=== PATIENT | female | born 1955 | race Caucasian/White ===

== ENCOUNTER 2017-11-06 11:04 | Emergency (ER) | payer MEDICARE, OTHER ==
[2017-11-06] MEDS: METOCLOPRAMIDE 10 MG INJ IV (12:55)
[2017-11-06] MEDS: KETOROLAC 30 MG INJ IV (12:56)
[2017-11-06] MEDS: SOD CHLORIDE 0.9% 1,000 ML IV (12:56)
[2017-11-06] MEDS: DIPHENHYDRAMINE 50 MG INJ IV (12:56)
[2017-11-06 13:29] LABS: URINE BLOOD (Dip) POC Negative (NEGATIVE); URINE GLUCOSE (Dip) POC Negative (NEGATIVE); URINE KETONES (Dip) POC Negative (NEGATIVE); URINE LEUKOCYTE EST (Dip) POC Trace (NEGATIVE); URINE NITRITE (Dip) POC Negative (NEGATIVE); URINE TOTAL PROTEIN POC Negative (NEGATIVE)
[2017-11-06 13:29] LABS: URINE PH (Dip) POC 7.5 (5.0-8.5)
== END 2017-11-06 15:33 | disposition home or self-care (01) ==
LOC: FTE 11:04
DX: R51 Headache (principal); Z79.82 Long term (current) use of aspirin
CPT/HCPCS: 70450; 81003; 96374; 96375; 99285-25

== ENCOUNTER 2017-11-17 14:29 | Emergency (ER) | payer MEDICARE, OTHER ==
[2017-11-17] MEDS: KETOROLAC 30 MG INJ IM ×2 (16:32→17:20)
[2017-11-17] MEDS: SOD CHLORIDE 0.9% 1,000 ML IV (17:14)
[2017-11-17 17:36] LABS: ADD MAN DIFF? NO
[2017-11-17 17:39] LABS: BASOPHILS % 0.3 % (0.0-2.0); EOSINOPHILS # 0.6 10^3/ul (0.0-0.5); EOSINOPHILS % 8.8 % (0.0-7.0); HEMATOCRIT 33.8 % (37.0-47.0); HEMOGLOBIN 10.5 g/dl (12.0-16.0); LYMPHOCYTES # 2.9 10^3/ul (0.8-2.9); LYMPHOCYTES % 40.1 % (15.0-51.0); MEAN CORPUSCULAR HEMOGLOBIN 26.6 pg (29.0-33.0); MEAN CORPUSCULAR HGB CONC 31.1 g/dl (32.0-37.0); MEAN CORPUSCULAR VOLUME 85.6 fl (82.0-101.0); MEAN PLATELET VOLUME 11.5 fl (7.4-10.4); MONOCYTE # 0.6 10^3/ul (0.3-0.9); MONOCYTES % 8.7 % (0.0-11.0); NEUTROPHIL # 3.1 10^3/ul (1.6-7.5); PLATELET COUNT 264 10^3/UL (140-415); RED BLOOD COUNT 3.95 10^6/ul (4.20-5.40); RED CELL DISTRIBUTION WIDTH 14.7 % (11.5-14.5)
[2017-11-17 17:39] LABS: WHITE BLOOD COUNT 7.3 10^3/ul (4.8-10.8)
[2017-11-17] MEDS: KETOROLAC 30 MG INJ IV (17:43)
[2017-11-17 17:47] LABS: ADD UMIC YES; UR ASCORBIC ACID NEGATIVE (NEGATIVE); UR BILIRUBIN (Dip) NEGATIVE (NEGATIVE); UR BLOOD (Dip) NEGATIVE (NEGATIVE); UR CLARITY CLEAR (CLEAR); UR COLOR YELLOW (YELLOW); UR GLUCOSE (Dip) NEGATIVE (NEGATIVE); UR KETONES (Dip) NEGATIVE (NEGATIVE); UR LEUKOCYTE ESTERASE (Dip) 2+ Leu/ul (NEGATIVE); UR MUCUS FEW /HPF (NONE SEEN); UR NITRITE (Dip) NEGATIVE (NEGATIVE); UR RBC 0 /HPF (0-5); UR SPECIFIC GRAVITY (Dip) 1.012 (1.003-1.030); UR SQUAMOUS EPITHELIAL CELL FEW /HPF (FEW); UR TOTAL PROTEIN (Dip) NEGATIVE (NEGATIVE); UR UROBILINOGEN (Dip) NEGATIVE (NEGATIVE); UR WBC 3 /HPF (0-5)
[2017-11-17 17:58] LABS: ANION GAP 19 (8-16); BLOOD UREA NITROGEN 11 mg/dl (7-20); CALCIUM 8.6 mg/dl (8.4-10.2); CARBON DIOXIDE 25 mmol/L (21-31); CHLORIDE 107 mmol/L (97-110); CREATININE 0.61 mg/dl (0.44-1.00); GLUCOSE 80 mg/dl (70-220); POTASSIUM 3.8 mmol/L (3.5-5.1); SODIUM 147 mmol/L (135-144)
[2017-11-17] MEDS: CEFTRIAXONE 1 GM/50 ML (PMX) 50 ML IVPB (18:25)
== END 2017-11-17 19:55 | disposition home or self-care (01) ==
LOC: FTE 14:29
DX: H66.92 Otitis media, unspecified, left ear (principal); Z79.82 Long term (current) use of aspirin
CPT/HCPCS: 36415; 80048; 81001; 85025; 96374; 96375; 99284-25

== ENCOUNTER 2019-02-08 17:48 | Emergency (ER) | payer MEDICARE, OTHER ==
[2019-02-08] MEDS: HYDROCODONE/APAP (5/325) TAB PO (18:33)
[2019-02-08] MEDS: KETOROLAC 30 MG INJ IM (18:34)
== END 2019-02-08 21:17 | disposition home or self-care (01) ==
LOC: FTE 17:48
DX: S92.351A Displaced fracture of fifth metatarsal bone, right foot, initial encounter for closed fracture (principal); X50.1XXA Overexertion from prolonged static or awkward postures, initial encounter; Y92.9 Unspecified place or not applicable; Z96.643 Presence of artificial hip joint, bilateral
CPT/HCPCS: 73610; 73610-RT; 73630; 96372; 99284-25

== ENCOUNTER 2019-04-03 18:54 | Inpatient (IN) | payer MEDICARE, OTHER ==
[2019-04-03] MEDS: BELLADONNA/PHENOBARBITAL TAB PO (21:53)
[2019-04-03] MEDS: SOD CHLORIDE 0.9% 1,000 ML IV (21:53)
[2019-04-03] MEDS: ONDANSETRON 4 MG INJ IV (21:53)
[2019-04-03] MEDS: LIDOCAINE/MYLANTA 40 ML BTL PO (21:53)
[2019-04-03] MEDS: KETOROLAC 15 MG INJ IV (21:53)
[2019-04-03 21:54] LABS: ADD MAN DIFF? NO
[2019-04-03] MEDS: ACETAMINOPHEN 325 MG TAB PO (21:54)
[2019-04-03 21:55] LABS: ABNORMAL IP MESSAGE 1; BASOPHILS % 0.2 % (0.0-2.0); EOSINOPHILS # 0.1 10^3/ul (0.0-0.5); EOSINOPHILS % 1.5 % (0.0-7.0); HEMATOCRIT 28.5 % (37.0-47.0); LYMPHOCYTES % 11.6 % (15.0-51.0); MEAN CORPUSCULAR HEMOGLOBIN 19.5 pg (29.0-33.0); MEAN CORPUSCULAR HGB CONC 28.1 g/dl (32.0-37.0); MEAN CORPUSCULAR VOLUME 69.5 fl (82.0-101.0); MONOCYTE # 0.6 10^3/ul (0.3-0.9); MONOCYTES % 6.8 % (0.0-11.0); NEUTROPHIL # 6.7 10^3/ul (1.6-7.5); NEUTROPHILS % 79.3 % (39.0-77.0); PLATELET COUNT 342 10^3/UL (140-415); RED CELL DISTRIBUTION WIDTH 18.7 % (11.5-14.5)
[2019-04-03 21:55] LABS: WHITE BLOOD COUNT 8.4 10^3/ul (4.8-10.8)
[2019-04-03 21:58] LABS: POSITIVE DIFF @See below
[2019-04-03 21:59] LABS: ADD UMIC YES; UR ASCORBIC ACID NEGATIVE (NEGATIVE); UR BILIRUBIN (Dip) NEGATIVE (NEGATIVE); UR BLOOD (Dip) NEGATIVE (NEGATIVE); UR CLARITY CLEAR (CLEAR); UR COLOR YELLOW (YELLOW); UR GLUCOSE (Dip) NEGATIVE (NEGATIVE); UR KETONES (Dip) NEGATIVE (NEGATIVE); UR LEUKOCYTE ESTERASE (Dip) TRACE Leu/ul (NEGATIVE); UR NITRITE (Dip) NEGATIVE (NEGATIVE); UR RBC 1 /HPF (0-5); UR SQUAMOUS EPITHELIAL CELL FEW /HPF (FEW); UR TOTAL PROTEIN (Dip) NEGATIVE (NEGATIVE); UR UROBILINOGEN (Dip) 1+ mg/dL (NEGATIVE); UR WBC 4 /HPF (0-5)
[2019-04-03 22:04] LABS: ALANINE AMINOTRANSFERASE 32 IU/L (13-69); ALBUMIN 4.7 g/dl (3.3-4.9); ALBUMIN/GLOBULIN RATIO 1.27; ALKALINE PHOSPHATASE 77 IU/L (42-121); ANION GAP 12 (5-13); ASPARTATE AMINO TRANSFERASE 63 IU/L (15-46); BILIRUBIN,INDIRECT 0.5 mg/dl (0-1.1); BILIRUBIN,TOTAL 0.5 mg/dl (0.2-1.3); BLOOD UREA NITROGEN 16 mg/dl (7-20); CARBON DIOXIDE 22 mmol/L (21-31); CHLORIDE 105 mmol/L (97-110); CREATININE 0.69 mg/dl (0.44-1.00); Estimated GFR > 60 mL/min (>60); GLUCOSE 104 mg/dl (70-220); LIPASE 36 U/L (23-300); POTASSIUM 4.3 mmol/L (3.5-5.1); SODIUM 139 mmol/L (135-144); TOTAL PROTEIN 8.4 g/dl (6.1-8.1)
[2019-04-03] MEDS: CEFTRIAXONE 1 GM/50 ML (PMX) 50 ML IVPB (23:28)
[2019-04-03] MEDS: PANTOPRAZOLE 40 MG INJ IV (23:28)
[2019-04-03] MEDS ORDERED: DOCUSATE SODIUM 100 MG CAP PO (23:30)
[2019-04-03] MEDS ORDERED: LORAZEPAM 2 MG INJ IV (23:30)
[2019-04-03] MEDS ORDERED: MAGNESIUM HYDROXIDE 30ML CUP PO (23:30)
[2019-04-03] MEDS ORDERED: NACL 0.9% 3 ML SYG IV (23:30)
[2019-04-03 23:45] LABS: LACTIC ACID 1.6 mmol/L (0.5-2.0)
[2019-04-04 00:11] LABS: INR 0.96; PROTIME 12.9 Sec (11.9-14.9)
[2019-04-04 00:27] LABS: FREE T4 (FREE THYROXINE) 0.94 ng/dl (0.78-2.44)
[2019-04-04] MEDS: SOD CHLORIDE 0.45% 1,000 ML IV ×2 (00:39→15:06)
[2019-04-04 01:52] LABS: LACTIC ACID 1.4 mmol/L (0.5-2.0)
[2019-04-04] MEDS: ONDANSETRON 4 MG INJ IV ×4 (05:54→21:05)
[2019-04-04] MEDS: PANTOPRAZOLE 40 MG INJ IV ×2 (05:54→17:49)
[2019-04-04] MEDS: morphine 2 MG INJ IV ×4 (05:54→23:22)
[2019-04-04 06:10] LABS: ADD MAN DIFF? NO
[2019-04-04 06:12] LABS: ABNORMAL IP MESSAGE 1; EOSINOPHILS # 0.2 10^3/ul (0.0-0.5); HEMATOCRIT 23.7 % (37.0-47.0); LYMPHOCYTES # 1.4 10^3/ul (0.8-2.9); LYMPHOCYTES % 29.5 % (15.0-51.0); MEAN CORPUSCULAR HEMOGLOBIN 19.8 pg (29.0-33.0); MEAN CORPUSCULAR HGB CONC 28.7 g/dl (32.0-37.0); MEAN CORPUSCULAR VOLUME 69.1 fl (82.0-101.0); MEAN PLATELET VOLUME 10.3 fl (7.4-10.4); MONOCYTE # 0.6 10^3/ul (0.3-0.9); MONOCYTES % 12.3 % (0.0-11.0); NEUTROPHIL # 2.5 10^3/ul (1.6-7.5); NEUTROPHILS % 52.8 % (39.0-77.0); PLATELET COUNT 259 10^3/UL (140-415); RED BLOOD COUNT 3.43 10^6/ul (4.20-5.40); RED CELL DISTRIBUTION WIDTH 18.5 % (11.5-14.5)
[2019-04-04 06:12] LABS: WHITE BLOOD COUNT 4.8 10^3/ul (4.8-10.8)
[2019-04-04 06:24] LABS: POSITIVE DIFF @See below
[2019-04-04 06:25] LABS: HEMOGLOBIN 6.8 g/dl (12.0-16.0)
[2019-04-04 06:50] LABS: ANION GAP 7 (5-13); Estimated GFR > 60 mL/min (>60)
[2019-04-04 06:55] LABS: BLOOD UREA NITROGEN 11 mg/dl (7-20); CARBON DIOXIDE 24 mmol/L (21-31); CHLORIDE 110 mmol/L (97-110); GLUCOSE 101 mg/dl (70-220); POTASSIUM 4.3 mmol/L (3.5-5.1); SODIUM 141 mmol/L (135-144)
[2019-04-04 06:56] LABS: CREATININE 0.72 mg/dl (0.44-1.00)
[2019-04-04 07:01] LABS: CHOL/HDL RATIO 4.8 RATIO; HDL CHOLESTEROL 30 mg/dl (35-98); LDL CHOLESTEROL,CALCULATED 86 mg/dl
[2019-04-04 07:01] LABS: CHOLESTEROL 144 mg/dl (100-200)
[2019-04-04 07:06] LABS: TRIGLYCERIDES 140 mg/dl (0-149)
[2019-04-04 07:21] LABS: HEMATOCRIT 23.6 % (37.0-47.0)
[2019-04-04 07:28] LABS: HEMOGLOBIN 6.7 g/dl (12.0-16.0)
[2019-04-04] MEDS: SOD CHLORIDE 0.9% 250 ML IV* (09:40)
[2019-04-04] MEDS: BISACODYL (EC) 5 MG TAB PO (15:06)
[2019-04-04 15:41] LABS: IRON 31 ug/dl (35-150)
[2019-04-04 15:50] LABS: % IRON SATURATION 8 % SAT (22-52); TOTAL IRON BINDING CAPACITY 409 ug/dl (241-421)
[2019-04-04 16:16] LABS: FERRITIN 5.6 ng/ml (11.1-264.0)
[2019-04-04 16:40] LABS: IMMEDIATE SPIN CROSSMATCH 1 2
[2019-04-04] MEDS: POLYETHYLENE GLYCOL 3350 119 GM POWDER PO (17:49)
[2019-04-04] MEDS: MAGNESIUM CITRATE 300 ML BTL PO (18:51)
[2019-04-04] MEDS: CEFTRIAXONE 1 GM/50 ML (PMX) 50 ML IVPB (23:22)
[2019-04-05] MEDS: SOD CHLORIDE 0.45% 1,000 ML IV ×2 (02:07→09:50)
[2019-04-05] MEDS: morphine 2 MG INJ IV ×3 (04:32→21:10)
[2019-04-05] MEDS: PANTOPRAZOLE 40 MG INJ IV ×2 (05:42→17:27)
[2019-04-05] MEDS: POLYETHYLENE GLYCOL 3350 119 GM POWDER PO (05:43)
[2019-04-05] MEDS: HYDROCODONE/APAP (5/325) TAB PO (06:12)
[2019-04-05] MEDS: BISACODYL (EC) 5 MG TAB PO (08:03)
[2019-04-05 08:23] LABS: ADD MAN DIFF? NO
[2019-04-05 08:27] LABS: BASOPHILS % 0.4 % (0.0-2.0); EOSINOPHILS # 0.5 10^3/ul (0.0-0.5); EOSINOPHILS % 11.2 % (0.0-7.0); HEMOGLOBIN 9.4 g/dl (12.0-16.0); LYMPHOCYTES # 1.7 10^3/ul (0.8-2.9); LYMPHOCYTES % 35.4 % (15.0-51.0); MEAN CORPUSCULAR HEMOGLOBIN 21.4 pg (29.0-33.0); MEAN CORPUSCULAR HGB CONC 29.4 g/dl (32.0-37.0); MEAN CORPUSCULAR VOLUME 72.9 fl (82.0-101.0); MEAN PLATELET VOLUME 9.8 fl (7.4-10.4); MONOCYTE # 0.8 10^3/ul (0.3-0.9); MONOCYTES % 17.2 % (0.0-11.0); NEUTROPHIL # 1.7 10^3/ul (1.6-7.5); NEUTROPHILS % 35.4 % (39.0-77.0); PLATELET COUNT 279 10^3/UL (140-415); RED BLOOD COUNT 4.39 10^6/ul (4.20-5.40); RED CELL DISTRIBUTION WIDTH 20.2 % (11.5-14.5)
[2019-04-05 08:27] LABS: WHITE BLOOD COUNT 4.7 10^3/ul (4.8-10.8)
[2019-04-05 08:47] LABS: MAGNESIUM 2.3 mg/dl (1.7-2.5)
[2019-04-05 08:47] LABS: PHOSPHORUS 3.5 mg/dl (2.5-4.9)
[2019-04-05 08:49] LABS: ALANINE AMINOTRANSFERASE 39 IU/L (13-69); ALBUMIN 3.8 g/dl (3.3-4.9); ALBUMIN/GLOBULIN RATIO 1.02; ALKALINE PHOSPHATASE 72 IU/L (42-121); ANION GAP 9 (5-13); ASPARTATE AMINO TRANSFERASE 45 IU/L (15-46); BILIRUBIN,INDIRECT 0.4 mg/dl (0-1.1); BILIRUBIN,TOTAL 0.4 mg/dl (0.2-1.3); BLOOD UREA NITROGEN 8 mg/dl (7-20); CALCIUM 8.5 mg/dl (8.4-10.2); CARBON DIOXIDE 23 mmol/L (21-31); CHLORIDE 110 mmol/L (97-110); CREATININE 0.72 mg/dl (0.44-1.00); Estimated GFR > 60 mL/min (>60); GLUCOSE 92 mg/dl (70-220); POTASSIUM 4.1 mmol/L (3.5-5.1); SODIUM 142 mmol/L (135-144); TOTAL PROTEIN 7.5 g/dl (6.1-8.1)
[2019-04-05] MEDS ORDERED: EPHEDrine 25 MG/5 ML SYG IV (15:30)
[2019-04-05] MEDS ORDERED: HYDROmorphONE 1 MG/ML SYG IV ×2 (15:30)
[2019-04-05] MEDS ORDERED: FENTAnyl 50 MCG/ML VIAL IV ×2 (15:30)
[2019-04-05] MEDS ORDERED: LABETALOL HCL 20MG INJ IV (15:30)
[2019-04-05] MEDS: PROPOFOL 20 ML (15:42)
[2019-04-05] MEDS: ONDANSETRON 4 MG INJ IV (16:06)
[2019-04-05] MEDS: ACET/BUTAL/CAFF TAB PO (22:18)
[2019-04-06] MEDS: PANTOPRAZOLE 40 MG INJ IV ×2 (06:00→17:41)
[2019-04-06 06:09] LABS: ADD MAN DIFF? NO; BASOPHILS % 0.4 % (0.0-2.0); EOSINOPHILS # 0.7 10^3/ul (0.0-0.5); EOSINOPHILS % 12.4 % (0.0-7.0); HEMATOCRIT 29.7 % (37.0-47.0); HEMOGLOBIN 8.9 g/dl (12.0-16.0); LYMPHOCYTES # 1.8 10^3/ul (0.8-2.9); LYMPHOCYTES % 33.6 % (15.0-51.0); MEAN CORPUSCULAR HEMOGLOBIN 21.7 pg (29.0-33.0); MEAN CORPUSCULAR VOLUME 72.4 fl (82.0-101.0); MONOCYTE # 0.9 10^3/ul (0.3-0.9); MONOCYTES % 16.1 % (0.0-11.0); NEUTROPHILS % 37.3 % (39.0-77.0); PLATELET COUNT 265 10^3/UL (140-415); RED CELL DISTRIBUTION WIDTH 19.7 % (11.5-14.5)
[2019-04-06 06:09] LABS: WHITE BLOOD COUNT 5.4 10^3/ul (4.8-10.8)
[2019-04-06 07:02] LABS: ALANINE AMINOTRANSFERASE 41 IU/L (13-69); ALBUMIN 3.6 g/dl (3.3-4.9); ALBUMIN/GLOBULIN RATIO 1.16; ALKALINE PHOSPHATASE 78 IU/L (42-121); ANION GAP 8 (5-13); ASPARTATE AMINO TRANSFERASE 37 IU/L (15-46); BILIRUBIN,INDIRECT 0.3 mg/dl (0-1.1); BILIRUBIN,TOTAL 0.3 mg/dl (0.2-1.3); BLOOD UREA NITROGEN 9 mg/dl (7-20); CALCIUM 8.8 mg/dl (8.4-10.2); CARBON DIOXIDE 24 mmol/L (21-31); CHLORIDE 109 mmol/L (97-110); CREATININE 0.73 mg/dl (0.44-1.00); Estimated GFR > 60 mL/min (>60); GLUCOSE 94 mg/dl (70-220); POTASSIUM 3.8 mmol/L (3.5-5.1); SODIUM 141 mmol/L (135-144); TOTAL PROTEIN 6.7 g/dl (6.1-8.1)
[2019-04-06 07:03] LABS: LACTIC ACID 0.8 mmol/L (0.5-2.0)
[2019-04-06] MEDS: ACETAMINOPHEN 325 MG TAB PO (10:31)
[2019-04-06] MEDS: GABAPENTIN 300 MG CAP PO ×2 (12:59→20:31)
[2019-04-06] MEDS: FOLIC ACID 1 MG TAB PO (12:59)
[2019-04-06] MEDS: FLUTICASONE 0.05% 16 GM NAS SPRAY NASAL ×3 (14:14→23:43)
[2019-04-06] MEDS: SUCRALFATE (100 MG/ML) 10ML CUP PO ×2 (17:41→20:31)
[2019-04-06] MEDS: HYDROCODONE/APAP (5/325) TAB PO (23:44)
[2019-04-07] MEDS: morphine 2 MG INJ IV (04:22)
[2019-04-07] MEDS: ONDANSETRON 4 MG INJ IV (04:22)
[2019-04-07 06:24] LABS: ADD MAN DIFF? NO
[2019-04-07 06:37] LABS: WHITE BLOOD COUNT 7.4 10^3/ul (4.8-10.8)
[2019-04-07 06:37] LABS: BASOPHILS % 0.4 % (0.0-2.0); EOSINOPHILS # 0.7 10^3/ul (0.0-0.5); HEMATOCRIT 30.4 % (37.0-47.0); HEMOGLOBIN 9.2 g/dl (12.0-16.0); LYMPHOCYTES # 2.2 10^3/ul (0.8-2.9); LYMPHOCYTES % 29.6 % (15.0-51.0); MEAN CORPUSCULAR HEMOGLOBIN 21.6 pg (29.0-33.0); MEAN CORPUSCULAR HGB CONC 30.3 g/dl (32.0-37.0); MEAN CORPUSCULAR VOLUME 71.5 fl (82.0-101.0); MEAN PLATELET VOLUME 10.3 fl (7.4-10.4); MONOCYTE # 0.9 10^3/ul (0.3-0.9); MONOCYTES % 12.2 % (0.0-11.0); NEUTROPHIL # 3.6 10^3/ul (1.6-7.5); NEUTROPHILS % 48.5 % (39.0-77.0); PLATELET COUNT 301 10^3/UL (140-415); RED BLOOD COUNT 4.25 10^6/ul (4.20-5.40); RED CELL DISTRIBUTION WIDTH 20.5 % (11.5-14.5)
[2019-04-07] MEDS: PANTOPRAZOLE 40 MG INJ IV (06:48)
[2019-04-07 07:18] LABS: ANION GAP 7 (5-13); BLOOD UREA NITROGEN 10 mg/dl (7-20); CARBON DIOXIDE 25 mmol/L (21-31); CHLORIDE 108 mmol/L (97-110); CREATININE 0.63 mg/dl (0.44-1.00); Estimated GFR > 60 mL/min (>60); GLUCOSE 95 mg/dl (70-220); SODIUM 140 mmol/L (135-144)
[2019-04-07] MEDS: FOLIC ACID 1 MG TAB PO ×2 (08:22→08:25)
[2019-04-07] MEDS: FLUTICASONE 0.05% 16 GM NAS SPRAY NASAL (08:22)
[2019-04-07] MEDS: SUCRALFATE (100 MG/ML) 10ML CUP PO ×3 (08:22→17:00)
[2019-04-07] MEDS: GABAPENTIN 300 MG CAP PO ×2 (08:22→12:48)
[2019-04-07] MEDS: METHOTREXATE 2.5 MG TAB PO (11:47)
[2019-04-07] MEDS ORDERED: SUMATRIPTAN 6 MG/0.5 ML INJ SC (16:00)
[2019-04-07] MEDS: METOCLOPRAMIDE 10 MG INJ IV (16:44)
[2019-04-07] MEDS: SUMATRIPTAN 6 MG/0.5 ML INJ SC (16:45)
[2019-04-07] MEDS ORDERED: TOPIRAMATE 25 MG TAB PO (21:00)
== END 2019-04-07 17:47 | disposition home or self-care (01) | DRG 690 ==
LOC: TEL 23:04 → E/R 18:54
PROVIDERS: Pediatrics Neonatal-Perinatal Medicine
PROC: 0DB58ZX Excision of Esophagus, Via Natural or Artificial Opening Endoscopic, Diagnostic (ICD-10-PCS; principal; 2019-04-05 15:00)
PROC: 0DB68ZX Excision of Stomach, Via Natural or Artificial Opening Endoscopic, Diagnostic (ICD-10-PCS; 2019-04-05 15:00)
PROC: 0DJD8ZZ Inspection of Lower Intestinal Tract, Via Natural or Artificial Opening Endoscopic (ICD-10-PCS; 2019-04-05 15:00)
PROC: 30233N1 Transfusion of Nonautologous Red Blood Cells into Peripheral Vein, Percutaneous Approach (ICD-10-PCS; 2019-04-05 15:00)
DX: N39.0 Urinary tract infection, site not specified (principal); D62 Acute posthemorrhagic anemia; K22.10 Ulcer of esophagus without bleeding; K29.70 Gastritis, unspecified, without bleeding; K64.8 Other hemorrhoids; Z90.710 Acquired absence of both cervix and uterus; Z90.49 Acquired absence of other specified parts of digestive tract
CPT/HCPCS: 36415; 36430; 71045; 74176; 80048; 80053; 80061; 81001; 82728; 83036; 83540; 83605; 83690; 83735; 84100; 84439; 84443; 85014; 85018; 85025; 85610; 85730; 86850; 86900; 86901; 86920; 87040-91; 87086; 88305; 88312; 88313; 96374; 96375; 97161; 99285-25

== ENCOUNTER 2019-05-14 14:58 | Emergency (ER) | payer MEDICARE, OTHER | END 2019-05-14 16:35 | disposition home or self-care (01) | LOC: E/R 14:58 | DX: S92.351A Displaced fracture of fifth metatarsal bone, right foot, initial encounter for closed fracture (principal); W01.0XXA Fall on same level from slipping, tripping and stumbling without subsequent striking against object, initial encounter; Y92.9 Unspecified place or not applicable | CPT/HCPCS: 73562; 73610-RT; 73630; 99283-25 ==

== ENCOUNTER 2019-05-17 18:06 | Emergency (ER) | payer MEDICARE, OTHER ==
[2019-05-17] MEDS: HYDROCODONE/APAP (5/325) TAB PO (18:35)
[2019-05-17] MEDS: ONDANSETRON 4 MG INJ IV (19:46)
[2019-05-17 19:47] LABS: ADD MAN DIFF? NO
[2019-05-17] MEDS: morphine 2 MG INJ IV (19:47)
[2019-05-17 19:49] LABS: ABNORMAL IP MESSAGE 1; BASOPHILS % 0.4 % (0.0-2.0); EOSINOPHILS # 0.5 10^3/ul (0.0-0.5); EOSINOPHILS % 6.5 % (0.0-7.0); HEMOGLOBIN 7.8 g/dl (12.0-16.0); LYMPHOCYTES # 2.3 10^3/ul (0.8-2.9); LYMPHOCYTES % 32.2 % (15.0-51.0); MEAN CORPUSCULAR HEMOGLOBIN 20.4 pg (29.0-33.0); MEAN CORPUSCULAR HGB CONC 28.9 g/dl (32.0-37.0); MEAN CORPUSCULAR VOLUME 70.5 fl (82.0-101.0); MEAN PLATELET VOLUME 9.9 fl (7.4-10.4); MONOCYTE # 0.8 10^3/ul (0.3-0.9); MONOCYTES % 11.5 % (0.0-11.0); NEUTROPHIL # 3.5 10^3/ul (1.6-7.5); NEUTROPHILS % 49.1 % (39.0-77.0); PLATELET COUNT 289 10^3/UL (140-415); RED BLOOD COUNT 3.83 10^6/ul (4.20-5.40)
[2019-05-17 19:49] LABS: WHITE BLOOD COUNT 7.2 10^3/ul (4.8-10.8)
[2019-05-17 19:58] LABS: POSITIVE DIFF @See below
[2019-05-17] MEDS: SOD CHLORIDE 0.9% 500 ML IV (20:03)
[2019-05-17 20:06] LABS: ALANINE AMINOTRANSFERASE 36 IU/L (13-69); ALBUMIN 4.3 g/dl (3.3-4.9); ALBUMIN/GLOBULIN RATIO 1.13; ALKALINE PHOSPHATASE 84 IU/L (42-121); ANION GAP 11 (5-13); ASPARTATE AMINO TRANSFERASE 35 IU/L (15-46); BILIRUBIN,TOTAL 0.4 mg/dl (0.2-1.3); BLOOD UREA NITROGEN 9 mg/dl (7-20); CARBON DIOXIDE 25 mmol/L (21-31); CHLORIDE 108 mmol/L (97-110); CREATININE 0.65 mg/dl (0.44-1.00); Estimated GFR > 60 mL/min (>60); GLUCOSE 103 mg/dl (70-220); POTASSIUM 3.8 mmol/L (3.5-5.1); SODIUM 144 mmol/L (135-144); TOTAL PROTEIN 8.1 g/dl (6.1-8.1)
[2019-05-17 20:09] LABS: PARTIAL THROMBOPLASTIN TIME 29.7 Sec (23.0-35.0); PROTIME 13.3 Sec (11.9-14.9)
[2019-05-17 20:17] LABS: TROPONIN-I < 0.012 ng/ml (0.000-0.120)
[2019-05-17] MEDS: KETOROLAC 15 MG INJ IV (22:27)
== END 2019-05-17 23:30 | disposition home or self-care (01) ==
LOC: FTE 18:06 → E/R 23:30
DX: S43.031A Inferior subluxation of right humerus, initial encounter (principal); W01.0XXA Fall on same level from slipping, tripping and stumbling without subsequent striking against object, initial encounter; Y92.9 Unspecified place or not applicable; Z96.643 Presence of artificial hip joint, bilateral
CPT/HCPCS: 73030; 73030-RT; 80053; 84484; 85025; 85610; 85730; 93005; 96374; 96375; 99285-25

== ENCOUNTER 2019-06-21 11:56 | Day surgery (SDC) | payer MEDICARE, OTHER ==
[2019-06-21] MEDS ORDERED: PROPOFOL 20 ML (13:32)
[2019-06-21] MEDS ORDERED: LIDOCAINE 100 MG SYRINGE (13:32)
== END 2019-06-21 16:03 | disposition home or self-care (01) ==
LOC: GIL 11:56
DX: K29.50 Unspecified chronic gastritis without bleeding (principal); K31.9 Disease of stomach and duodenum, unspecified; K20.9 Esophagitis, unspecified; J45.909 Unspecified asthma, uncomplicated
CPT/HCPCS: 43239; 88305; 88312